=== PATIENT | female | born 1940 | race Caucasian/White ===

== ENCOUNTER 2017-09-15 07:58 | Emergency (ER) | payer OTHER ==
[~2017-09-15] VITALS: Ht 172.7 cm; Wt 49.9 kg
[2017-09-15] MEDS ORDERED: FLUOXETINE HCL 10 MG (08:12)
[2017-09-15] MEDS ORDERED: ISOSORBIDE MONONITRATE PO (08:12)
[2017-09-15] MEDS ORDERED: LISINOPRIL 10 MG TABS PO (08:12)
[2017-09-15] MEDS ORDERED: CLOPIDOGREL 75 MG TABS (08:12)
[2017-09-15] MEDS ORDERED: CLOP75TA15 PO (08:14)
[2017-09-15] MEDS ORDERED: ATOR80TA PO (08:14)
[2017-09-15] MEDS ORDERED: DILT 120 MG PO (08:14)
[2017-09-15] MEDS ORDERED: FLUO20CA36 PO (08:14)
[2017-09-15] MEDS ORDERED: CRAN450C PO (08:14)
--- NOTE | 2017-09-15 08:23 | NUR ---
PT IS IN ROOM #1B. DR FINLEY EVALUATED THE PT.
--- NOTE | 2017-09-15 09:30 | NUR ---
ANGELA JACOBSP WAS CALLED DR FINLEY TALKED TO ANGELA WALLIS.
--- NOTE | 2017-09-15 09:34 | NUR ---
Pt refused lab draw, made aware.
[2017-09-15 10:36] LABS: BASOPHILS # (AUTO) 0.1 K/uL (0.0-8.0); BASOPHILS % (AUTO) 0.7 % (0.0-2.0); EOSINOPHILS # (AUTO) 0.1 K/uL (0.0-0.7); EOSINOPHILS % (AUTO) 0.6 % (0.0-7.0); HEMATOCRIT 38.2 % (31.2-41.9); LYMPHOCYTES % (AUTO) 8.4 % (20.5-51.5); MEAN CORPUSCULAR HEMOGLOBIN 31.6 uug (24.7-32.8); MEAN CORPUSCULAR HGB CONC 34 g/dL (32.3-35.6); MEAN CORPUSCULAR VOLUME 92.9 fL (75.5-95.3); MONOCYTES # (AUTO) 0.9 K/uL (2.0-10.0); MONOCYTES % (AUTO) 7.9 % (0.0-11.0); NEUTROPHILS # (AUTO) 9.8 K/uL (1.8-8.9); NEUTROPHILS % (AUTO) 82.4 % (38.5-71.5); PLATELET COUNT (AUTO) 218 K/uL (179-408); RED BLOOD CELL COUNT(AUTO) 4.12 MIL/uL (3.63-4.92); WHITE BLOOD COUNT (AUTO) 11.9 K/uL (3.8-11.8)
[2017-09-15 10:43] LABS: CARBON DIOXIDE 27 mmol/L (21-32); CHLORIDE 103 mmol/L (98-107); CREATININE 0.9 mg/dL (0.6-1.3); GLUCOSE 109 mg/dL (74-106); POTASSIUM 3.6 mmol/L (3.5-5.1); UREA NITROGEN, BLOOD 16 mg/dL (7-18)
--- NOTE | 2017-09-15 14:14 | NUR ---
PT WAS TRANSFERED TO [facility] VIA [facility]. REPORT WAS GIVEN TO AMBULANCE RN AND TO [facility] RN CLARISSE.
== END 2017-09-15 14:21 | disposition short-term general hospital (02) ==
LOC: ER 07:58
DX: S10.83XA Contusion of other specified part of neck, initial encounter (principal); S80.02XA Contusion of left knee, initial encounter; R55 Syncope and collapse; I10 Essential (primary) hypertension; Z88.0 Allergy status to penicillin; Z86.79 Personal history of other diseases of the circulatory system; X58.XXXA Exposure to other specified factors, initial encounter; Y93.89 Activity, other specified; Y92.89 Other specified places as the place of occurrence of the external cause; Y99.8 Other external cause status
CPT/HCPCS: 36415; 70030-TC; 71045; 83605; 85025; 93005; A4663